=== PATIENT | female | born 1940 | race Caucasian/White ===

== ENCOUNTER → 2017-11-09 12:44 | Outpatient (CLI) | payer MEDICARE, SELFPAY ==
[2017-11-09 13:56] LABS: Alanine Aminotransferase 33 IU/L (9-52); Albumin 4.1 g/dL (3.5-5.0); Albumin Globulin Ratio 1.3 (1.0-2.8); Alkaline Phosphatase 56 U/L (38-126); Aspartate Aminotransferase 40 IU/L (14-36); BUN Creatinine Ratio 17.1 (6-22); Bilirubin Total 0.3 mg/dL (0.2-1.3); Blood Urea Nitrogen 12 mg/dL (7-17); Calcium 9.4 mg/dL (8.4-10.2); Carbon Dioxide 33 mmol/L (22-32); Chloride 99 mmol/L (98-107); Estimated Glomerular Filt Rate > 60.0 mL/min (>60); Globulin 3.1 g/dL (1.7-4.1); Glucose 70 mg/dL (80-110); HEMOLYSIS < 15 (0-50); Sodium 138 mmol/L (137-145); Total Protein 7.2 g/dL (6.3-8.2)
== END ==
PROVIDERS: Family Provider Physician Assistant; PCP Physician Assistant; Visit Provider Physician Assistant
DX: M81.0 Age-related osteoporosis without current pathological fracture (principal); E87.1 Hypo-osmolality and hyponatremia
CPT/HCPCS: 36415; 80053

== ENCOUNTER 2017-12-01 11:15 | Outpatient (RCR) | payer MEDICARE, SELFPAY ==
--- NOTE | 2017-10-06 15:30 | PT.OIE ---
Current Diagnoses Cystocele, unspecified (10/06/17) Other female genital prolapse (10/06/17) Provider Visit Care Team Role Provider Type Nette Almeida PA-C Family Provider Physician Primary Care Provider Specialty: Internal Medicine Address: [address] [place] [address], [id number] Email: Giselle Johnson MD Attending Provider Physician Specialty: PUBLIC INFORMATION OFFICER Address: [address] [place] [address], [id number] Email: [email or web address] Physical Therapy Initial Evaluation PT-OP-A Visit Information Start: 10/06/17 08:13 Freq: Status: Active Protocol: Document 10/06/17 09:05 LRN (Rec: 10/06/17 09:58 LRN [id number]) Out-Patient Physical Therapy Visit Information Visit Information Visit Type Initial Evaluation Visit Start Time 09:05 Visit Stop Time 10:05 Total Visit Minutes 60 Visit Number 1 Number of CLAM PICKER Visits 0 Evaluation Information Evaluation Date 10/06/17 PT-OP-B Current Condition Start: 10/06/17 08:13 Freq: Status: Active Protocol: Document 10/06/17 09:05 LRN (Rec: 10/06/17 09:58 LRN [id number]) Current Condition History of Current Condition Onset Date 08/2017 Current Complaints Feeling of a bulge in the Pelvic Floor (PF). History of Current Condition Pt reports one day she noticed being uncomfortable and unusual in the PF region, like a bulge was present. She denies having pain or leakage, but is bothered by a feeling of a bulge. She recalls no preceding incident to cause the feeling, but she states she did fall 3' from a ladder in May, landing on a concrete floor straight on both buttocks. She suffered a pelvic bone fracture at the time. She notes sometimes having a problem with constipation if she doesn't watch her diet. Prior Treatments and Tests None Treatment Goals Patient/Caregiver Goals Pt goal is to strengthen the PF to avoid use of Pessary or need for surgery. Prior Functional Status Baseline Function- ADL's Independent Baseline Function- Mobility Independent Current Functional Impairments (Reported) Functional Limitations- ADL's None. but feels uncomfortable with activity due to the bulging. Functional Limitations- Mobility/Gait None Personal Factors Other Personal Factors That May Effect Lives alone, daughters nearby. Therapy/Recovery Osteoporosis. Occasional back pain since fall. Used to walk 3-4 times a week 2 miles, none since onset of problem. Has been doing sitting PF ex's 2x/day. PT-OP-C Subjective Start: 10/06/17 08:13 Freq: Status: Active Protocol: Document 10/06/17 09:05 LRN (Rec: 10/06/17 09:58 LRN [id number]) OP-PT Subjective Patient Comments Patient Comments Thinks the ex's Dr. Johnson instructed her in have been helpful. Patient Questionnaires Pelvic Pain and Urgency/Frequency Patient Symptom Scale Pelvic Pain Score 1 PT-OP-I Pelvic Floor Start: 10/06/17 08:13 Freq: Status: Active Protocol: Document 10/06/17 09:05 LRN (Rec: 10/06/17 09:58 LRN [id number]) Pelvic Floor Assessment Urine Pelvic Floor Surgery No Pelvic Clock Pelvic Clock 3-6 Tightness Prolapse Cystocele Grade 3 Prolapse Comments Pt has a feeling of falling out. Contraction Ability Voluntary Contraction Moderate Manual Muscle Testing Left 2 Manual Muscle Testing Right 2 Manual Muscle Testing Anterior 4 Manual Muscle Testing Posterior 4 PT-OP-J Posture/Palpation/Skin Start: 10/06/17 08:13 Freq: Status: Active Protocol: Document 10/06/17 09:05 LRN (Rec: 10/06/17 09:58 LRN [id number]) Posture Evaluation Position Standing Evaluation View Anterior, Posterior, Lateral L-Spine Posture Increased Lordosis Shoulder Posture (L) Elevated Pelvis Posture (L) PSIS Posterior (L) PSIS Inferior Knee Posture (L) Genu Varus (R) Genu Varus Ankle/Foot Posture (L) Calcaneal Eversion (R) Calcaneal Eversion PT-OP-K Range of Motion Start: 10/06/17 08:13 Freq: Status: Active Protocol: Document 10/06/17 09:05 LRN (Rec: 10/06/17 09:58 LRN [id number]) Hip Goniometric Range of Motion Hip Measured in Degrees Right Passive Testing Position Supine Straight Leg Raise 70 Extension 5 Internal Rotation 35 External Rotation 53 Passive Hip ROM WFL No Left Passive Testing Position Supine Straight Leg Raise 60 Extension 5 Abduction 30 Internal Rotation 30 External Rotation 55 PT-OP-M Strength Start: 10/06/17 08:13 Freq: Status: Active Protocol: Document 10/06/17 09:05 LRN (Rec: 10/06/17 09:58 LRN [id number]) Hip Strength Hip Manual Muscle Testing Right Flexion (L2) 4 Good External Rotation 5 Normal Internal Rotation 5 Normal Left Flexion (L2) 4 Good External Rotation 5 Normal Internal Rotation 5 Normal PT-OP-Q Treatments Start: 10/06/17 08:13 Freq: Status: Active Protocol: Document 10/06/17 09:05 LRN (Rec: 10/06/17 17:55 LRN [id number]) Self-Care/Home Management Treatment Education Patient Education Home Exercise Program Activities Self-Care/Home Management Activities Issued and reviewed: Bladder Diary to be completed. Issued and reviewed: Kegel ex' s for quick flicks and long holds in supine with hips elevated, down dog position, or sit/stand. PT-OP-T Assessment and Plan Start: 10/06/17 08:13 Freq: Status: Active Protocol: Document 10/06/17 09:05 LRN (Rec: 10/06/17 09:58 LRN [id number]) Physical Therapy Assessment Rehab Potential Rehabilitation Potential Excellent Evaluation Complexity Number of Personal Factors/Comorbidities 0 Number of Body Systems Impaired 3 Clinical Presentation at Evaluation Stable Impairments Impairments Posture Soft Tissue Mobility Strength Other Concerns Barriers to Rehabilitation Age: 76 Lives alone. Goals Three Impairment Decreased PF quick contraction strength. Prison Goal (LTG) Pt will be able to perform 10 quick contractions prior to notable fatigue in order to prevent the need for use of pessary or surgery. LTG Duration 12/09/17 Two Impairment Decreased PF long hold of less than 10 sec's Hydrogen Power Plant Engineer Goal (LTG) Pt will be able to hold a PF contraction 10 sec's or greater prior to notable fatigue in order to avoid the use of a pessary. LTG Duration 12/09/17 One Impairment Lacks appropriate self care/ home exercise program (HEP). Prison Goal (LTG) Pt will be independent in self care/HEP. LTG Duration 12/09/17 Assessment Summary Assessment Pt presents with weakness of the pelvic floor in both quick flick and endurance muscle contractions. She has a visible cystocele without symptoms of urinary leakage, only discomfort. It is probable that the pelvic dysfunction from her fall in May has caused a muscle imbalance of her pelvic floor and hips; therefore leading to instability of her pelvis/ core/hips. The pt will benefit from skilled physical therapy to improve instability and strengthen her pelvic floor and will possibly be able to avoid surgery or use of a pessary. Physical Therapy Plan Frequency and Duration Frequency of Treatment 1x/Week Duration of Treatment 2 months Plan of Care Start Date 10/07/15 Plan of Care End Date 12/09/17 Therapeutic Interventions Therapeutic Interventions Home Exercise Program Joint Mobilizations Manual Therapy Neuromuscular Re-education Patient/Caregiver Education Self-Care/Home Management Soft Tissue Mobilization Therapeutic Activities Therapeutic Exercises Modalities Biofeedback Cold Pack/Ice Massage Next Visit Focus/Plan Next Note Type Treatment Note Next Visit Plan Review Bladder Diary, pt education anatomy and for recommendations to behavior modification as needed for fluid intake per bladder diary , SEMG assessment and PF strengthening ex's, HEP of hip stretches. Address proper transfers and core stabilization in 1-2 weeks. Progress per cystocele protocol.
--- NOTE | 2017-10-09 17:47 | PT.OPPOC ---
Addendum entered and electronically signed by Alayna Ford, PT 10/10/17 15:39: Actual Plan of Care Date is 10/06/17. Note complete 10/10/17. Original Note: Current Diagnoses Cystocele, unspecified (10/06/17) Other female genital prolapse (10/06/17) Provider Visit Care Team Role Provider Type Nette Almeida PA-C Family Provider Physician Primary Care Provider Specialty: Internal Medicine Address: [address] [place] [address], [id number] Email: Giselle Johnson MD Attending Provider Physician Specialty: BOILER/CHILLER OPERATOR Address: [address] [place] [address], [address] Email: [email or web address] Plan Of Care PT-OP-T Assessment and Plan Start: 10/06/17 08:13 Freq: Status: Active Protocol: Document 10/06/17 09:05 LRN (Rec: 10/06/17 09:58 LRN [id number]) Physical Therapy Assessment Rehab Potential Rehabilitation Potential Excellent Evaluation Complexity Number of Personal Factors/Comorbidities 0 Number of Body Systems Impaired 3 Clinical Presentation at Evaluation Stable Impairments Impairments Posture Soft Tissue Mobility Strength Other Concerns Barriers to Rehabilitation Age: 76 Lives alone. Goals Three Impairment Decreased PF quick contraction strength. Muck Boss Goal (LTG) Pt will be able to perform 10 quick contractions prior to notable fatigue in order to prevent the need for use of pessary or surgery. LTG Duration 12/09/17 Two Impairment Decreased PF long hold of less than 10 sec's Detention Goal (LTG) Pt will be able to hold a PF contraction 10 sec's or greater prior to notable fatigue in order to avoid the use of a pessary. LTG Duration 12/09/17 One Impairment Lacks appropriate self care/ home exercise program (HEP). Muck Boss Goal (LTG) Pt will be independent in self care/HEP. LTG Duration 12/09/17 Assessment Summary Assessment Pt presents with weakness of the pelvic floor in both quick flick and endurance muscle contractions. She has a visible cystocele without symptoms of urinary leakage, only discomfort. It is probable that the pelvic dysfunction from her fall in May has caused a muscle imbalance of her pelvic floor and hips; therefore leading to instability of her pelvis/ core/hips. The pt will benefit from skilled physical therapy to improve instability and strengthen her pelvic floor and will possibly be able to avoid surgery or use of a pessary. Physical Therapy Plan Frequency and Duration Frequency of Treatment 1x/Week Duration of Treatment 2 months Plan of Care Start Date 10/07/15 Plan of Care End Date 12/09/17 Therapeutic Interventions Therapeutic Interventions Home Exercise Program Joint Mobilizations Manual Therapy Neuromuscular Re-education Patient/Caregiver Education Self-Care/Home Management Soft Tissue Mobilization Therapeutic Activities Therapeutic Exercises Modalities Biofeedback Cold Pack/Ice Massage Next Visit Focus/Plan Next Note Type Treatment Note Next Visit Plan Review Bladder Diary, pt education anatomy and for recommendations to behavior modification as needed for fluid intake per bladder diary , SEMG assessment and PF strengthening ex's, HEP of hip stretches. Address proper transfers and core stabilization in 1-2 weeks. Progress per cystocele protocol. Plan of Care Dates Plan of Care Start Date 10/07/15 Plan of Care End Date 12/09/17 Please Sign and Return: I have reviewed this Plan of Care and certify that the skilled therapy services above are required to meet the patient?s needs. Physician Signature Date Printed Name and Credentials Clinical Instructor Signature Printed Name and Credentials
--- NOTE | 2017-10-13 15:55 | PT.OTN ---
Current Diagnoses Cystocele, unspecified (10/13/17) Other female genital prolapse (10/13/17) Physical Therapy Treatment Note PT-OP-A Visit Information Start: 10/06/17 08:13 Freq: Status: Active Protocol: Document 10/13/17 09:01 LRN (Rec: 10/13/17 09:08 LRN [id number]) Out-Patient Physical Therapy Visit Information Visit Information Visit Type Treatment Note Visit Note 05/21 Visit Start Time 09:01 Visit Stop Time 10:58 Total Visit Minutes 57 Visit Number 2 Number of MATERIALS INSPECTOR Visits 0 Evaluation Information Evaluation Date 10/06/17 PT-OP-B Current Condition Start: 10/06/17 08:13 Freq: Status: Active Protocol: Document 10/06/17 09:05 LRN (Rec: 10/06/17 09:58 LRN [id number]) Current Condition History of Current Condition Onset Date 08/2017 Current Complaints Feeling of a bulge in the Pelvic Floor (PF). History of Current Condition Pt reports one day she noticed being uncomfortable and unusual in the PF region, like a bulge was present. She denies having pain or leakage, but is bothered by a feeling of a bulge. She recalls no preceding incident to cause the feeling, but she states she did fall 3' from a ladder in May, landing on a concrete floor straight on both buttocks. She suffered a pelvic bone fracture at the time. She notes sometimes having a problem with constipation if she doesn't watch her diet. Prior Treatments and Tests None Treatment Goals Patient/Caregiver Goals Pt goal is to strengthen the PF to avoid use of Pessary or need for surgery. Prior Functional Status Baseline Function- ADL's Independent Baseline Function- Mobility Independent Current Functional Impairments (Reported) Functional Limitations- ADL's None. but feels uncomfortable with activity due to the bulging. Functional Limitations- Mobility/Gait None Personal Factors Other Personal Factors That May Effect Lives alone, daughters nearby. Therapy/Recovery Osteoporosis. Occasional back pain since fall. Used to walk 3-4 times a week 2 miles, none since onset of problem. Has been doing sitting PF ex's 2x/day. PT-OP-C Subjective Start: 10/06/17 08:13 Freq: Status: Active Protocol: Document 10/13/17 09:01 LRN (Rec: 10/13/17 09:08 LRN [id number]) OP-PT Subjective Patient Comments Patient Comments Did not do bladder diary. Haven't done ex's well because of holiday. PT-OP-I Pelvic Floor Start: 10/06/17 08:13 Freq: Status: Active Protocol: Document 10/13/17 09:01 LRN (Rec: 10/13/17 09:15 LRN [id number]) Pelvic Floor Assessment SEMG (uV) Baseline 7.7 Quick Contraction 19.2 10 Second Contraction 13.5 Relaxation Fair Holding Poor/Slow Stability of Hold Poor/Slow Comments Pelvic Floor Comments Quick Flicks: 3 reps before decrease in strength. Long Hold: 2 reps before decrease in strength hold. Rest is 4.29 microVolts. PT-OP-J Posture/Palpation/Skin Start: 10/06/17 08:13 Freq: Status: Active Protocol: Document 10/06/17 09:05 LRN (Rec: 10/06/17 09:58 LRN [id number]) Posture Evaluation Position Standing Evaluation View Anterior, Posterior, Lateral L-Spine Posture Increased Lordosis Shoulder Posture (L) Elevated Pelvis Posture (L) PSIS Posterior (L) PSIS Inferior Knee Posture (L) Genu Varus (R) Genu Varus Ankle/Foot Posture (L) Calcaneal Eversion (R) Calcaneal Eversion PT-OP-K Range of Motion Start: 10/06/17 08:13 Freq: Status: Active Protocol: Document 10/06/17 09:05 LRN (Rec: 10/06/17 09:58 LRN [id number]) Hip Goniometric Range of Motion Hip Measured in Degrees Right Passive Testing Position Supine Straight Leg Raise 70 Extension 5 Internal Rotation 35 External Rotation 53 Passive Hip ROM WFL No Left Passive Testing Position Supine Straight Leg Raise 60 Extension 5 Abduction 30 Internal Rotation 30 External Rotation 55 PT-OP-M Strength Start: 10/06/17 08:13 Freq: Status: Active Protocol: Document 10/06/17 09:05 LRN (Rec: 10/06/17 09:58 LRN [id number]) Hip Strength Hip Manual Muscle Testing Right Flexion (L2) 4 Good External Rotation 5 Normal Internal Rotation 5 Normal Left Flexion (L2) 4 Good External Rotation 5 Normal Internal Rotation 5 Normal PT-OP-Q Treatments Start: 10/06/17 08:13 Freq: Status: Active Protocol: Document 10/13/17 09:01 LRN (Rec: 10/13/17 09:08 LRN [id number]) Neuro Re-Education Treatment Movement Re-Education Movement Re-education Activities PF contraction in isolation of abdominal & gluteal muscles per EMG Biofeedback Other Activities 2 Details ON WEDGE: Long Holds: PF contraction: 10 sec hold/10 sec rest Reps/Duration 4' Comments Training 1 Details ON WEDGE: Quick Flicks: PF contraction: 2 sec hold/2 sec rest Reps/Duration 4' Comments Training. Self-Care/Home Management Treatment Education Patient Education Home Exercise Program Posture Other Education Pt educated in pelvic anatomy and consequences/effects of prolapse and impact of constipation on urinary system . Pt educated in HEP: Diaphragmatic Breathing LE Roll in/out (without breathing or ball/band) Activities Self-Care/Home Management Activities PF contraction PT-OP-T Assessment and Plan Start: 10/06/17 08:13 Freq: Status: Active Protocol: Document 10/13/17 09:01 LRN (Rec: 10/13/17 09:08 LR [id number]) Physical Therapy Assessment Impairments Impairments Posture Soft Tissue Mobility Strength Goals Three Impairment Decreased PF quick contraction strength. Irrigator Gravity Flow Goal (LTG) Pt will be able to perform 10 quick contractions prior to notable fatigue in order to prevent the need for use of pessary or surgery. LTG Duration 12/09/17 Two Impairment Decreased PF long hold of less than 10 sec's Irrigator Gravity Flow Goal (LTG) Pt will be able to hold a PF contraction 10 sec's or greater prior to notable fatigue in order to avoid the use of a pessary. LTG Duration 12/09/17 One Impairment Lacks appropriate self care/ home exercise program (HEP). Penitentiary Goal (LTG) Pt will be independent in self care/HEP. LTG Duration 12/09/17 Progress Towards Goals Progress Comments Progress is slow. Pt did not do Bladder diary and was not consistent with her Kegel ex's . She is hesitant with therapy; therefore takes more time with training/teaching. Assessment Summary Assessment Pt presents with weakness of the pelvic floor in both quick flick and endurance muscle contractions per EMG biofeedback with vaginal electrode. She has a visible cystocele without symptoms of urinary leakage, only discomfort. Probable pelvic dysfunction from her fall in May caused a muscle imbalance of her pelvic floor and hips. She also has a high resting tone that limits her ability to perform a PF contraction. Her hold strength of contraction is 2 sec's and Quick Flick strength is good for 3 reps. Further strengthening in and elevated hip position or downward dog position is needed. Physical Therapy Plan Frequency and Duration Frequency of Treatment 1x/Week Duration of Treatment 2 months Plan of Care Start Date 10/07/15 Plan of Care End Date 12/09/17 Therapeutic Interventions Therapeutic Interventions Home Exercise Program Joint Mobilizations Manual Therapy Neuromuscular Re-education Patient/Caregiver Education Self-Care/Home Management Soft Tissue Mobilization Therapeutic Activities Therapeutic Exercises Modalities Biofeedback Cold Pack/Ice Massage Next Visit Focus/Plan Next Note Type Treatment Note Next Visit Plan Review Bladder Diary and give recommendations to behavior modification as needed per bladder diary review; PF strengthening ex's. Add HEP of hip stretches. Address proper transfers and core stabilization in 1-2 weeks. Progress per cystocele protocol.
--- NOTE | 2017-10-20 13:56 | PT.OTN ---
Current Diagnoses Cystocele, unspecified (10/20/17) Other female genital prolapse (10/20/17) Physical Therapy Treatment Note PT-OP-A Visit Information Start: 10/06/17 08:13 Freq: Status: Active Protocol: Document 10/20/17 09:05 LRN (Rec: 10/20/17 09:51 LRN [id number]) Out-Patient Physical Therapy Visit Information Visit Information Visit Type Treatment Note Visit Note 06/18 Visit Start Time 09:05 Visit Stop Time 10:50 Total Visit Minutes 45 Visit Number 3 Number of SOCIAL STUDIES DEPARTMENT CHAIR Visits 0 Evaluation Information Evaluation Date 10/06/17 PT-OP-B Current Condition Start: 10/06/17 08:13 Freq: Status: Active Protocol: Document 10/06/17 09:05 LRN (Rec: 10/06/17 09:58 LRN [id number]) Current Condition History of Current Condition Onset Date 08/2017 Current Complaints Feeling of a bulge in the Pelvic Floor (PF). History of Current Condition Pt reports one day she noticed being uncomfortable and unusual in the PF region, like a bulge was present. She denies having pain or leakage, but is bothered by a feeling of a bulge. She recalls no preceding incident to cause the feeling, but she states she did fall 3' from a ladder in May, landing on a concrete floor straight on both buttocks. She suffered a pelvic bone fracture at the time. She notes sometimes having a problem with constipation if she doesn't watch her diet. Prior Treatments and Tests None Treatment Goals Patient/Caregiver Goals Pt goal is to strengthen the PF to avoid use of Pessary or need for surgery. Prior Functional Status Baseline Function- ADL's Independent Baseline Function- Mobility Independent Current Functional Impairments (Reported) Functional Limitations- ADL's None. but feels uncomfortable with activity due to the bulging. Functional Limitations- Mobility/Gait None Personal Factors Other Personal Factors That May Effect Lives alone, daughters nearby. Therapy/Recovery Osteoporosis. Occasional back pain since fall. Used to walk 3-4 times a week 2 miles, none since onset of problem. Has been doing sitting PF ex's 2x/day. PT-OP-C Subjective Start: 10/06/17 08:13 Freq: Status: Active Protocol: Document 10/20/17 09:05 LRN (Rec: 10/20/17 09:51 LRN [id number]) OP-PT Subjective Patient Comments Patient Comments Didn't ex as much as she should. Did do Bladder Diary. PT-OP-I Pelvic Floor Start: 10/06/17 08:13 Freq: Status: Active Protocol: Document 10/20/17 09:05 LRN (Rec: 10/20/17 13:44 LRN [id number]) Pelvic Floor Assessment Urine Urinary Symptoms Prolapse Other Urinary Symptoms No Leakage SEMG (uV) Baseline 3.5 Quick Contraction 17 10 Second Contraction 12 Relaxation Good PT-OP-J Posture/Palpation/Skin Start: 10/06/17 08:13 Freq: Status: Active Protocol: Document 10/06/17 09:05 LRN (Rec: 10/06/17 09:58 LRN [id number]) Posture Evaluation Position Standing Evaluation View Anterior, Posterior, Lateral L-Spine Posture Increased Lordosis Shoulder Posture (L) Elevated Pelvis Posture (L) PSIS Posterior (L) PSIS Inferior Knee Posture (L) Genu Varus (R) Genu Varus Ankle/Foot Posture (L) Calcaneal Eversion (R) Calcaneal Eversion PT-OP-K Range of Motion Start: 10/06/17 08:13 Freq: Status: Active Protocol: Document 10/06/17 09:05 LRN (Rec: 10/06/17 09:58 LRN [id number]) Hip Goniometric Range of Motion Hip Measured in Degrees Right Passive Testing Position Supine Straight Leg Raise 70 Extension 5 Internal Rotation 35 External Rotation 53 Passive Hip ROM WFL No Left Passive Testing Position Supine Straight Leg Raise 60 Extension 5 Abduction 30 Internal Rotation 30 External Rotation 55 PT-OP-M Strength Start: 10/06/17 08:13 Freq: Status: Active Protocol: Document 10/06/17 09:05 LRN (Rec: 10/06/17 09:58 LRN [id number]) Hip Strength Hip Manual Muscle Testing Right Flexion (L2) 4 Good External Rotation 5 Normal Internal Rotation 5 Normal Left Flexion (L2) 4 Good External Rotation 5 Normal Internal Rotation 5 Normal PT-OP-Q Treatments Start: 10/06/17 08:13 Freq: Status: Active Protocol: Document 10/20/17 09:05 LRN (Rec: 10/20/17 09:51 LRN [id number]) Therapeutic Exercises Supine Exercises 5 Supine Exercise Name With Bolster: Roll in/outs with Deep Breathing Reps/Minutes 4' Comments Extra time taken for training/ coordinatlin 4 Supine Exercise Name Piriformis stretch Side bilateral Reps/Minutes 3 3 Supine Exercise Name Hip ER Stretch Side bilateral Reps/Minutes 3 2 Supine Exercise Name Hip stretch: Hip flexor Side bilateral Resistance 3 1 Supine Exercise Name With Bolster: Deep Breathing Reps/Minutes 10' Neuro Re-Education Treatment Other Activities 2 Details ON WEDGE: Long Holds: PF contraction: 10 sec hold/10 sec rest Reps/Duration 4' Comments Training 1 Details ON WEDGE: Quick Flicks: PF contraction: 2 sec hold/2 sec rest Reps/Duration 4' Comments Training. Self-Care/Home Management Treatment Activities Self-Care/Home Management Activities Reviewed Bladder Diary and discussed self care. Primarily to increase non- caffenated drinks and monitor urination time PT-OP-T Assessment and Plan Start: 10/06/17 08:13 Freq: Status: Active Protocol: Document 10/20/17 09:05 LRN (Rec: 10/20/17 09:51 LRN [id number]) Physical Therapy Assessment Rehab Potential Rehabilitation Potential Excellent Evaluation Complexity Number of Personal Factors/Comorbidities 0 Number of Body Systems Impaired 3 Clinical Presentation at Evaluation Stable Impairments Impairments Posture Soft Tissue Mobility Strength Other Concerns Barriers to Rehabilitation Age: 76 Lives alone. Goals Three Impairment Decreased PF quick contraction strength. Chcf Goal (LTG) Pt will be able to perform 10 quick contractions prior to notable fatigue in order to prevent the need for use of pessary or surgery. LTG Duration 12/09/17 Two Impairment Decreased PF long hold of less than 10 sec's Risk And Insurance Manager Goal (LTG) Pt will be able to hold a PF contraction 10 sec's or greater prior to notable fatigue in order to avoid the use of a pessary. LTG Duration 12/09/17 One Impairment Lacks appropriate self care/ home exercise program (HEP). Chcf Goal (LTG) Pt will be independent in self care/HEP. LTG Duration 12/09/17 Progress Towards Goals Progress Comments Pt able to perform proper deep breathing, but is too quick. Assessment Summary Assessment Improved breathing technique and at end of training was able to properly perform Roll in/out ex 50% of time. Use of Ashely image for PF training was beneficial to pt feedback for strengthening. Physical Therapy Plan Frequency and Duration Frequency of Treatment 1x/Week Duration of Treatment 2 months Plan of Care Start Date 10/07/15 Plan of Care End Date 12/09/17 Therapeutic Interventions Therapeutic Interventions Home Exercise Program Joint Mobilizations Manual Therapy Neuromuscular Re-education Patient/Caregiver Education Self-Care/Home Management Soft Tissue Mobilization Therapeutic Activities Therapeutic Exercises Modalities Biofeedback Cold Pack/Ice Massage Next Visit Focus/Plan Next Note Type Treatment Note Next Visit Plan PF strengthening ex's. Review HEP of hip stretches. Address proper transfers and core stabilization in 1-2 weeks. Progress per cystocele protocol.
--- NOTE | 2017-10-27 14:56 | PT.OTN ---
Current Diagnoses Cystocele, unspecified (10/27/17) Other female genital prolapse (10/27/17) Physical Therapy Treatment Note PT-OP-A Visit Information Start: 10/06/17 08:13 Freq: Status: Active Protocol: Document 10/27/17 09:05 LRN (Rec: 10/27/17 09:44 LRN [id number]) Out-Patient Physical Therapy Visit Information Visit Information Visit Type Treatment Note Visit Note 07/19 Visit Start Time 09:05 Visit Stop Time 09:45 Total Visit Minutes 40 Visit Number 4 Number of MUSIC EDUCATION DIRECTOR Visits 0 Evaluation Information Evaluation Date 10/06/17 PT-OP-B Current Condition Start: 10/06/17 08:13 Freq: Status: Active Protocol: Document 10/06/17 09:05 LRN (Rec: 10/06/17 09:58 LRN [id number]) Current Condition History of Current Condition Onset Date 08/2017 Current Complaints Feeling of a bulge in the Pelvic Floor (PF). History of Current Condition Pt reports one day she noticed being uncomfortable and unusual in the PF region, like a bulge was present. She denies having pain or leakage, but is bothered by a feeling of a bulge. She recalls no preceding incident to cause the feeling, but she states she did fall 3' from a ladder in May, landing on a concrete floor straight on both buttocks. She suffered a pelvic bone fracture at the time. She notes sometimes having a problem with constipation if she doesn't watch her diet. Prior Treatments and Tests None Treatment Goals Patient/Caregiver Goals Pt goal is to strengthen the PF to avoid use of Pessary or need for surgery. Prior Functional Status Baseline Function- ADL's Independent Baseline Function- Mobility Independent Current Functional Impairments (Reported) Functional Limitations- ADL's None. but feels uncomfortable with activity due to the bulging. Functional Limitations- Mobility/Gait None Personal Factors Other Personal Factors That May Effect Lives alone, daughters nearby. Therapy/Recovery Osteoporosis. Occasional back pain since fall. Used to walk 3-4 times a week 2 miles, none since onset of problem. Has been doing sitting PF ex's 2x/day. PT-OP-C Subjective Start: 10/06/17 08:13 Freq: Status: Active Protocol: Document 10/27/17 09:05 LRN (Rec: 10/27/17 09:44 LRN [id number]) OP-PT Subjective Patient Comments Patient Comments Not a good week to keep up with ex's. PT-OP-I Pelvic Floor Start: 10/06/17 08:13 Freq: Status: Active Protocol: Document 10/20/17 09:05 LRN (Rec: 10/20/17 13:44 LRN [id number]) Pelvic Floor Assessment Urine Urinary Symptoms Prolapse Other Urinary Symptoms No Leakage SEMG (uV) Baseline 3.5 Quick Contraction 17 10 Second Contraction 12 Relaxation Good PT-OP-J Posture/Palpation/Skin Start: 10/06/17 08:13 Freq: Status: Active Protocol: Document 10/06/17 09:05 LRN (Rec: 10/06/17 09:58 LRN [id number]) Posture Evaluation Position Standing Evaluation View Anterior, Posterior, Lateral L-Spine Posture Increased Lordosis Shoulder Posture (L) Elevated Pelvis Posture (L) PSIS Posterior (L) PSIS Inferior Knee Posture (L) Genu Varus (R) Genu Varus Ankle/Foot Posture (L) Calcaneal Eversion (R) Calcaneal Eversion PT-OP-K Range of Motion Start: 10/06/17 08:13 Freq: Status: Active Protocol: Document 10/06/17 09:05 LRN (Rec: 10/06/17 09:58 LRN [id number]) Hip Goniometric Range of Motion Hip Measured in Degrees Right Passive Testing Position Supine Straight Leg Raise 70 Extension 5 Internal Rotation 35 External Rotation 53 Passive Hip ROM WFL No Left Passive Testing Position Supine Straight Leg Raise 60 Extension 5 Abduction 30 Internal Rotation 30 External Rotation 55 PT-OP-M Strength Start: 10/06/17 08:13 Freq: Status: Active Protocol: Document 10/06/17 09:05 LRN (Rec: 10/06/17 09:58 LRN [id number]) Hip Strength Hip Manual Muscle Testing Right Flexion (L2) 4 Good External Rotation 5 Normal Internal Rotation 5 Normal Left Flexion (L2) 4 Good External Rotation 5 Normal Internal Rotation 5 Normal PT-OP-Q Treatments Start: 10/06/17 08:13 Freq: Status: Active Protocol: Document 10/27/17 09:05 LRN (Rec: 10/27/17 09:44 LRN [id number]) Therapeutic Exercises Supine Exercises 5 Supine Exercise Name With Bolster: Roll in/outs with Deep Breathing Reps/Minutes 10' 4 Supine Exercise Name Piriformis stretch Side bilateral Reps/Minutes 1' 3 Supine Exercise Name Hip ER Stretch Side bilateral Reps/Minutes 1' 2 Supine Exercise Name Hip stretch: Hip flexor Side bilateral Resistance 1 Reps/Minutes 1' 1 Supine Exercise Name With Bolster: Deep Breathing Reps/Minutes 2' Neuro Re-Education Treatment Movement Re-Education Movement Re-education Activities PF contraction in isolation of abdominal & gluteal muscles per EMG Biofeedback Other Activities 2 Details ON WEDGE: Long Holds: PF contraction: 10 sec hold/10 sec rest Reps/Duration 10 Comments Training 1 Details ON WEDGE: Quick Flicks: PF contraction: 2 sec hold/2 sec rest Reps/Duration 5 Comments Training. Self-Care/Home Management Treatment Activities Self-Care/Home Management Activities Reviewed Bladder Diary and discussed self care. Less caffeine drinks, more non- bladder irritant fluids. PT-OP-T Assessment and Plan Start: 10/06/17 08:13 Freq: Status: Active Protocol: Document 10/27/17 09:05 LRN (Rec: 10/27/17 09:44 LRN [id number]) Physical Therapy Assessment Goals Three Impairment Decreased PF quick contraction strength. Stainless Steel Finisher Goal (LTG) Pt will be able to perform 10 quick contractions prior to notable fatigue in order to prevent the need for use of pessary or surgery. LTG Duration 12/09/17 Two Impairment Decreased PF long hold of less than 10 sec's Stainless Steel Finisher Goal (LTG) Pt will be able to hold a PF contraction 10 sec's or greater prior to notable fatigue in order to avoid the use of a pessary. LTG Duration 12/09/17 One Impairment Lacks appropriate self care/ home exercise program (HEP). Detention Goal (LTG) Pt will be independent in self care/HEP. LTG Duration 12/09/17 Assessment Summary Assessment Pt Bladder Diary shows increased urination times and increased freq in the AM with decreased fluids daily (1/2 of fluid drinking amount compared to her body weight), more water needed to decrease constipation and weakening of the PF. Pt demonstrates proper diaphragmatic breathing , but a little fast. Physical Therapy Plan Frequency and Duration Frequency of Treatment 1x/Week Duration of Treatment 2 months Plan of Care Start Date 06/28/16 Plan of Care End Date 12/09/17 Next Visit Focus/Plan Next Note Type Treatment Note Next Visit Plan PF strengthening ex's. Address proper transfers and core stabilization in 1-2 weeks. Progress per cystocele protocol.
--- NOTE | 2017-11-17 12:49 | PT.OTN ---
Current Diagnoses Cystocele, unspecified (11/17/17) Other female genital prolapse (11/17/17) Physical Therapy Treatment Note PT-OP-A Visit Information Start: 10/06/17 08:13 Freq: Status: Active Protocol: Document 11/17/17 11:30 LRN (Rec: 11/17/17 12:27 LRN [id number]) Out-Patient Physical Therapy Visit Information Visit Information Visit Type Treatment Note Visit Note 08/18 Visit Start Time 11:30 Visit Stop Time 12:15 Total Visit Minutes 45 Visit Number 5 Number of EDUCATION RESEARCH ANALYST Visits 0 Evaluation Information Evaluation Date 10/06/17 PT-OP-B Current Condition Start: 10/06/17 08:13 Freq: Status: Active Protocol: Document 10/06/17 09:05 LRN (Rec: 10/06/17 09:58 LRN [id number]) Current Condition History of Current Condition Onset Date 08/2017 Current Complaints Feeling of a bulge in the Pelvic Floor (PF). History of Current Condition Pt reports one day she noticed being uncomfortable and unusual in the PF region, like a bulge was present. She denies having pain or leakage, but is bothered by a feeling of a bulge. She recalls no preceding incident to cause the feeling, but she states she did fall 3' from a ladder in May, landing on a concrete floor straight on both buttocks. She suffered a pelvic bone fracture at the time. She notes sometimes having a problem with constipation if she doesn't watch her diet. Prior Treatments and Tests None Treatment Goals Patient/Caregiver Goals Pt goal is to strengthen the PF to avoid use of Pessary or need for surgery. Prior Functional Status Baseline Function- ADL's Independent Baseline Function- Mobility Independent Current Functional Impairments (Reported) Functional Limitations- ADL's None. but feels uncomfortable with activity due to the bulging. Functional Limitations- Mobility/Gait None Personal Factors Other Personal Factors That May Effect Lives alone, daughters nearby. Therapy/Recovery Osteoporosis. Occasional back pain since fall. Used to walk 3-4 times a week 2 miles, none since onset of problem. Has been doing sitting PF ex's 2x/day. PT-OP-C Subjective Start: 10/06/17 08:13 Freq: Status: Active Protocol: Document 11/17/17 11:30 LRN (Rec: 11/17/17 12:27 LRN [id number]) OP-PT Subjective Patient Comments Patient Comments Somedays is better, but other days not better. Tries to do some ex's 2x/day. PT-OP-I Pelvic Floor Start: 10/06/17 08:13 Freq: Status: Active Protocol: Document 10/20/17 09:05 LRN (Rec: 10/20/17 13:44 LRN [id number]) Pelvic Floor Assessment Urine Urinary Symptoms Prolapse Other Urinary Symptoms No Leakage SEMG (uV) Baseline 3.5 Quick Contraction 17 10 Second Contraction 12 Relaxation Good PT-OP-J Posture/Palpation/Skin Start: 10/06/17 08:13 Freq: Status: Active Protocol: Document 10/06/17 09:05 LRN (Rec: 10/06/17 09:58 LRN [id number]) Posture Evaluation Position Standing Evaluation View Anterior, Posterior, Lateral L-Spine Posture Increased Lordosis Shoulder Posture (L) Elevated Pelvis Posture (L) PSIS Posterior (L) PSIS Inferior Knee Posture (L) Genu Varus (R) Genu Varus Ankle/Foot Posture (L) Calcaneal Eversion (R) Calcaneal Eversion PT-OP-K Range of Motion Start: 10/06/17 08:13 Freq: Status: Active Protocol: Document 10/06/17 09:05 LRN (Rec: 10/06/17 09:58 LRN [id number]) Hip Goniometric Range of Motion Hip Measured in Degrees Right Passive Testing Position Supine Straight Leg Raise 70 Extension 5 Internal Rotation 35 External Rotation 53 Passive Hip ROM WFL No Left Passive Testing Position Supine Straight Leg Raise 60 Extension 5 Abduction 30 Internal Rotation 30 External Rotation 55 PT-OP-M Strength Start: 10/06/17 08:13 Freq: Status: Active Protocol: Document 10/06/17 09:05 LRN (Rec: 10/06/17 09:58 LRN [id number]) Hip Strength Hip Manual Muscle Testing Right Flexion (L2) 4 Good External Rotation 5 Normal Internal Rotation 5 Normal Left Flexion (L2) 4 Good External Rotation 5 Normal Internal Rotation 5 Normal PT-OP-Q Treatments Start: 10/06/17 08:13 Freq: Status: Active Protocol: Document 11/17/17 11:30 LRN (Rec: 11/17/17 12:27 LRN [id number]) Therapeutic Exercises Supine Exercises 5 Supine Exercise Name With Bolster: Roll in/outs with Deep Breathing Reps/Minutes 3' Neuro Re-Education Treatment Other Activities 4 Details Towel Squeeze & TBand hip AB with PF contraction 3 Details NMES PF Awareness training and strengthening Reps/Duration 25' Comments Slow training needed due to pt fear with E-Stim. 2 Details ON WEDGE: Long Holds: PF contraction: 10 sec hold/10 sec rest Reps/Duration 10x Comments Training 1 Details ON WEDGE: Quick Flicks: PF contraction: 2 sec hold/2 sec rest Reps/Duration 10x Comments Training. Self-Care/Home Management Treatment Education Patient Education Home Exercise Program Activities Self-Care/Home Management Activities I/S pt in HEP of Towel Roll Squeeze/PF contraction and T- Band BKFO/PF contraction, HIPS ON PILLOW. PT-OP-T Assessment and Plan Start: 10/06/17 08:13 Freq: Status: Active Protocol: Document 11/17/17 11:30 LRN (Rec: 11/17/17 12:27 LRN [id number]) Physical Therapy Assessment Impairments Impairments Posture Soft Tissue Mobility Strength Other Concerns Barriers to Rehabilitation Age: 76 Lives alone. Goals Three Impairment Decreased PF quick contraction strength. Ham Clerk Goal (LTG) Pt will be able to perform 10 quick contractions prior to notable fatigue in order to prevent the need for use of pessary or surgery. LTG Duration 12/09/17 Two Impairment Decreased PF long hold of less than 10 sec's Ham Clerk Goal (LTG) Pt will be able to hold a PF contraction 10 sec's or greater prior to notable fatigue in order to avoid the use of a pessary. LTG Duration 12/09/17 One Impairment Lacks appropriate self care/ home exercise program (HEP). Ham Clerk Goal (LTG) Pt will be independent in self care/HEP. LTG Duration 12/09/17 Progress Towards Goals Progress Comments Good coordination of LE Roll in/outs with Deep breathing. Assessment Summary Assessment Pt able to get awareness of a PF contraction with NMES intensity of 9 (50 freq), but pt had to back down intensity to 8. Pt required quite a bit of extra time to adjust to PF NMES. Physical Therapy Plan Frequency and Duration Frequency of Treatment 1x/Week Duration of Treatment 2 months Plan of Care Start Date 10/07/15 Plan of Care End Date 12/09/17 Next Visit Focus/Plan Next Note Type Treatment Note Next Visit Plan PF strengthening ex's. Address proper transfers and core stabilization. Progress per cystocele protocol.
--- NOTE | 2017-12-01 14:37 | PT.OTN ---
Current Diagnoses Cystocele, unspecified (12/01/17) Other female genital prolapse (12/01/17) Physical Therapy Treatment Note PT-OP-A Visit Information Start: 10/06/17 08:13 Freq: Status: Active Protocol: Document 12/01/17 11:15 LRN (Rec: 12/01/17 14:01 LRN [id number]) Out-Patient Physical Therapy Visit Information Visit Information Visit Type Treatment Note Visit Note 09/18 Visit Start Time 11:15 Visit Stop Time 12:10 Total Visit Minutes 55 Visit Number 6 Number of FINANCIAL SECRETARY Visits 0 Evaluation Information Evaluation Date 10/06/17 PT-OP-B Current Condition Start: 10/06/17 08:13 Freq: Status: Active Protocol: Document 10/06/17 09:05 LRN (Rec: 10/06/17 09:58 LRN [id number]) Current Condition History of Current Condition Onset Date 08/2017 Current Complaints Feeling of a bulge in the Pelvic Floor (PF). History of Current Condition Pt reports one day she noticed being uncomfortable and unusual in the PF region, like a bulge was present. She denies having pain or leakage, but is bothered by a feeling of a bulge. She recalls no preceding incident to cause the feeling, but she states she did fall 3' from a ladder in May, landing on a concrete floor straight on both buttocks. She suffered a pelvic bone fracture at the time. She notes sometimes having a problem with constipation if she doesn't watch her diet. Prior Treatments and Tests None Treatment Goals Patient/Caregiver Goals Pt goal is to strengthen the PF to avoid use of Pessary or need for surgery. Prior Functional Status Baseline Function- ADL's Independent Baseline Function- Mobility Independent Current Functional Impairments (Reported) Functional Limitations- ADL's None. but feels uncomfortable with activity due to the bulging. Functional Limitations- Mobility/Gait None Personal Factors Other Personal Factors That May Effect Lives alone, daughters nearby. Therapy/Recovery Osteoporosis. Occasional back pain since fall. Used to walk 3-4 times a week 2 miles, none since onset of problem. Has been doing sitting PF ex's 2x/day. PT-OP-C Subjective Start: 10/06/17 08:13 Freq: Status: Active Protocol: Document 12/01/17 11:15 LRN (Rec: 12/01/17 14:01 LRN [id number]) OP-PT Subjective Patient Comments Patient Comments Some days seems a little better, other times not. Patient Reported Progress Same PT-OP-I Pelvic Floor Start: 10/06/17 08:13 Freq: Status: Active Protocol: Document 12/01/17 11:15 LRN (Rec: 12/01/17 14:01 LRN [id number]) Pelvic Floor Assessment Urine Urinary Symptoms Prolapse Other Urinary Symptoms No Leakage Prolapse Uterine Prolapse Grade 4 Cystocele Grade 4 Prolapse Comments Checked in standing SEMG (uV) Baseline 1.1 Quick Contraction 13.7 10 Second Contraction 13.3 Relaxation Good Holding Poor/Slow Stability of Hold Poor/Slow PT-OP-J Posture/Palpation/Skin Start: 10/06/17 08:13 Freq: Status: Active Protocol: Document 10/06/17 09:05 LRN (Rec: 10/06/17 09:58 LRN [id number]) Posture Evaluation Position Standing Evaluation View Anterior, Posterior, Lateral L-Spine Posture Increased Lordosis Shoulder Posture (L) Elevated Pelvis Posture (L) PSIS Posterior (L) PSIS Inferior Knee Posture (L) Genu Varus (R) Genu Varus Ankle/Foot Posture (L) Calcaneal Eversion (R) Calcaneal Eversion PT-OP-K Range of Motion Start: 10/06/17 08:13 Freq: Status: Active Protocol: Document 10/06/17 09:05 LRN (Rec: 10/06/17 09:58 LRN [id number]) Hip Goniometric Range of Motion Hip Measured in Degrees Right Passive Testing Position Supine Straight Leg Raise 70 Extension 5 Internal Rotation 35 External Rotation 53 Passive Hip ROM WFL No Left Passive Testing Position Supine Straight Leg Raise 60 Extension 5 Abduction 30 Internal Rotation 30 External Rotation 55 PT-OP-M Strength Start: 10/06/17 08:13 Freq: Status: Active Protocol: Document 10/06/17 09:05 LRN (Rec: 10/06/17 09:58 LRN [id number]) Hip Strength Hip Manual Muscle Testing Right Flexion (L2) 4 Good External Rotation 5 Normal Internal Rotation 5 Normal Left Flexion (L2) 4 Good External Rotation 5 Normal Internal Rotation 5 Normal PT-OP-Q Treatments Start: 10/06/17 08:13 Freq: Status: Active Protocol: Document 12/01/17 11:15 LRN (Rec: 12/01/17 14:07 LRN [id number]) Therapeutic Exercises Supine Exercises 6 Supine Exercise Name BKFO with T-Band and towel roll Side bilateral Resistance L 1 T-Band and towel roll Reps/Minutes 10x each 5 Supine Exercise Name With Bolster: Roll in/outs with Deep Breathing Reps/Minutes 3' Sidelying Exercises 1 Sidelying Exercise Name Clamshell Side left Reps/Minutes 10x Neuro Re-Education Treatment Other Activities 2 Details ON WEDGE: Long Holds: PF contraction: 10 sec hold/10 sec rest Reps/Duration 10x 1 Details ON WEDGE: Quick Flicks: PF contraction: 2 sec hold/2 sec rest Reps/Duration 10x Self-Care/Home Management Treatment Education Patient Education Home Exercise Program Activities Self-Care/Home Management Activities Reviewed HEP. Educated pt to do PF strengthening in primarily supine with pillow under hips. Discussed PF training with sit to stands and uneven surfaces and in down dog yoga poses. Issued and reviewed HEP for Clamshell ex with PF contraction (1 with PF ><, 1 without; and 5 reps with PF >< , 5 reps without). PT-OP-T Assessment and Plan Start: 10/06/17 08:13 Freq: Status: Active Protocol: Document 12/01/17 11:15 LRN (Rec: 12/01/17 14:01 LRN [id number]) Physical Therapy Assessment Impairments Impairments Posture Soft Tissue Mobility Strength Other Concerns Barriers to Rehabilitation Age: 76 Lives alone. Goals Three Impairment Decreased PF quick contraction strength. Boat Builder And Repairer Goal (LTG) Pt will be able to perform 10 quick contractions prior to notable fatigue in order to prevent the need for use of pessary or surgery. LTG Duration 12/09/17 Two Impairment Decreased PF long hold of less than 10 sec's Boat Builder And Repairer Goal (LTG) Pt will be able to hold a PF contraction 10 sec's or greater prior to notable fatigue in order to avoid the use of a pessary. LTG Duration 12/09/17 One Impairment Lacks appropriate self care/ home exercise program (HEP). Boat Builder And Repairer Goal (LTG) Pt will be independent in self care/HEP. LTG Duration 12/09/17 Assessment Summary Assessment Pt's bladder position appears unchanged (checked in standing ). Her resting tone is lower and her ability to contract her PF has improved, but her strength of contraction for quick flicks is less and her endurance remains the same. The pt was unable to tolerate the use E-Stim for improving her PF awareness; therefore she is not yet sure what a PF contraction should really feel like. Since the pt has made no improvement in positioning of her bladder she is being referred back to your office for further recommendations. Physical Therapy Plan Discharge Physical Therapy Discharge Reasons Plateau in Progress Discharge Comments Pt is being referred back to your office for further recommendations. She is interested in use of a pessary .
== END 2018-03-13 12:32 ==
LOC: PHYS 11:15
PROVIDERS: Family Provider Physician Assistant; PCP Physician Assistant; Visit Provider Specialist
DX: N81.10 Cystocele, unspecified (principal); N81.89 Other female genital prolapse
CPT/HCPCS: 97110; 97112; 97161; 97535

== ENCOUNTER → 2017-12-01 14:09 | Outpatient (CLI) | payer MEDICARE, SELFPAY | PROVIDERS: Family Provider Physician Assistant; PCP Physician Assistant; Visit Provider Physician Assistant | DX: M81.0 Age-related osteoporosis without current pathological fracture (principal); Z78.0 Asymptomatic menopausal state | CPT/HCPCS: 77080 ==

== ENCOUNTER → 2018-08-02 16:15 | Outpatient (CLI) | payer MEDICARE, SELFPAY ==
--- NOTE | 2018-08-02 | DI.MG.S_ITS ---
BILATERAL DIGITAL SCREENING MAMMOGRAM 3D/2D WITH CAD: 08/02/2018 CLINICAL: Routine screening. Comparison is made to exams dated: 07/19/2016 mammogram, 07/10/2015 mammogram - [facility], and 07/08/2014 mammogram - [facility]. The tissue of both breasts is heterogeneously dense. This may lower the sensitivity of mammography. Current study was also evaluated with a Computer Aided Detection (CAD) system. No significant masses, calcifications, or other findings are seen in either breast. There has been no significant interval change. IMPRESSION: NEGATIVE There is no mammographic evidence of malignancy. A 1 year screening mammogram is recommended. This exam was interpreted at Station ID: [id number]. NOTE: For mammograms, a report in lay terms will be sent to the patient. Approximately 15% of breast malignancies will not be visualized mammographically. In the management of a palpable breast mass, a negative mammogram must not discourage biopsy of a clinically suspicious lesion. Electronically Signed By: Nick cason/jaron:08/03/2018 11:54:34 letter sent: Normal Exam ACR BI-RADS Category 1: Negative 3341F
== END ==
PROVIDERS: Family Provider Physician Assistant; PCP Physician Assistant; Visit Provider Internal Medicine
DX: Z12.31 Encounter for screening mammogram for malignant neoplasm of breast (principal)
CPT/HCPCS: 77063; 77067

== ENCOUNTER → 2018-08-22 11:05 | Outpatient (CLI) | payer MEDICARE, SELFPAY ==
[2018-08-22 13:28] LABS: Alanine Aminotransferase 23 IU/L (9-52); Albumin 4.1 g/dL (3.5-5.0); Albumin Globulin Ratio 1.3 (1.0-2.8); Alkaline Phosphatase 55 U/L (38-126); Aspartate Aminotransferase 32 IU/L (14-36); Bilirubin Total 0.4 mg/dL (0.2-1.3); Blood Urea Nitrogen 12 mg/dL (7-17); Calcium 9.3 mg/dL (8.4-10.2); Carbon Dioxide 29 mmol/L (22-32); Chloride 99 mmol/L (98-107); Cholesterol 201 mg/dL (140-199); Estimated Glomerular Filt Rate > 60.0 mL/min (>60); Globulin 3.1 g/dL (1.7-4.1); Glucose 76 mg/dL (80-110); HDL Cholesterol 50 mg/dL (40-60); HEMOLYSIS < 15 (0-50); LDL Cholesterol Calculated 131 mg/dL (<100); Sodium 138 mmol/L (137-145); Total Protein 7.2 g/dL (6.3-8.2); Triglycerides 99 mg/dL (35-150)
== END ==
PROVIDERS: Family Provider Physician Assistant; PCP Physician Assistant; Visit Provider Physician Assistant
DX: K58.9 Irritable bowel syndrome, unspecified (principal); M81.0 Age-related osteoporosis without current pathological fracture; E87.1 Hypo-osmolality and hyponatremia
CPT/HCPCS: 36415; 80053; 80061

== ENCOUNTER → 2018-12-19 13:04 | Outpatient (CLI) | payer MEDICARE, SELFPAY ==
[2018-12-19 13:49] LABS: Prothrombin Time 11.1 SECONDS (10.1-12.7)
[2018-12-19 13:52] LABS: PTT Partial Thromboplastin Tim 24 SECONDS (26.4-36.2)
[2018-12-19 15:05] LABS: Alanine Aminotransferase 21 IU/L (9-52); Albumin 4.7 g/dL (3.5-5.0); Albumin Globulin Ratio 1.5 (1.0-2.8); Alkaline Phosphatase 64 U/L (38-126); Aspartate Aminotransferase 35 IU/L (14-36); BUN Creatinine Ratio 18.6 (6-22); Bilirubin Total 0.6 mg/dL (0.2-1.3); Blood Urea Nitrogen 13 mg/dL (7-17); Calcium 9.7 mg/dL (8.4-10.2); Carbon Dioxide 28 mmol/L (22-32); Chloride 99 mmol/L (98-107); Estimated Glomerular Filt Rate > 60.0 mL/min (>60); Gamma Glutamyl Transpeptidase 23 U/L (12-43); Globulin 3.1 g/dL (1.7-4.1); Glucose 84 mg/dL (80-110); HEMOLYSIS < 15 (0-50); Potassium 4.2 mmol/L (3.4-5.1); Sodium 139 mmol/L (137-145); Total Protein 7.8 g/dL (6.3-8.2)
[2018-12-19 15:40] LABS: Hepatitis B Surface Antigen NEGATIVE s/c (NEGATIVE)
[2018-12-19 15:59] LABS: Hep C Virus Ab w/Reflex Quant NEGATIVE s/c (NEGATIVE)
[2018-12-21 14:58] LABS: Hepatitis B Core Antibody Nonreactive (Nonreactive)
[2018-12-22 08:08] LABS: Hepatitis B Surf Ab Qualitativ Nonreactive (Nonreactive)
== END ==
PROVIDERS: PCP Physician Assistant; Visit Provider Internal Medicine
DX: R74.0 Nonspecific elevation of levels of transaminase and lactic acid dehydrogenase [LDH] (principal)
CPT/HCPCS: 36415; 80053; 82977; 85610; 85730; 86704; 86706; 86803; 87340

== ENCOUNTER → 2019-12-13 14:58 | Outpatient (CLI) | payer MEDICARE, SELFPAY ==
--- NOTE | 2019-12-13 15:51 | DI.MG.S_ITS ---
Patient Name: CHRISTINA FONSECA date: 1940 Sex: F Attending Physician: Tai Indications: Date: 12/13/2019 15:48 At the request of: DYANA BRUNNER Procedure: MM screening mammo BI BILATERAL DIGITAL SCREENING MAMMOGRAM 3D/2D WITH CAD: 12/13/2019 CLINICAL: Routine screening. Comparison is made to exams dated: 08/02/2018 mammogram, 07/19/2016 mammogram, and 07/10/2015 mammogram - [facility]. The tissue of both breasts is heterogeneously dense. This may lower the sensitivity of mammography. Current study was also evaluated with a Computer Aided Detection (CAD) system. No significant masses, calcifications, or other findings are seen in either breast. There has been no significant interval change. IMPRESSION: NEGATIVE There is no mammographic evidence of malignancy. A 1 year screening mammogram is recommended. This exam was interpreted at Station ID: [id number]. NOTE: For mammograms, a report in lay terms will be sent to the patient. Approximately 15% of breast malignancies will not be visualized mammographically. In the management of a palpable breast mass, a negative mammogram must not discourage biopsy of a clinically suspicious lesion. Electronically Signed By: Charles garcia/jaron:12/13/2019 17:26:08 letter sent: Normal Exam ACR BI-RADS Category 1: Negative 3341F
== END ==
PROVIDERS: PCP Internal Medicine; Referring Provider Internal Medicine; Visit Provider Internal Medicine
DX: Z12.31 Encounter for screening mammogram for malignant neoplasm of breast (principal); M81.0 Age-related osteoporosis without current pathological fracture; Z78.0 Asymptomatic menopausal state
CPT/HCPCS: 77063; 77067; 77080

== ENCOUNTER → 2020-05-20 14:26 | Outpatient (ROUT) | payer MEDICARE, SELFPAY ==
[2020-05-20 14:38] LABS: Add Manual Diff / Slide Review NO; Basophils Absolute Auto 100 /uL (0-100); Basophils Percent Auto 1.3 % (0-2); Eosinophils Absolute Auto 100 /uL (0-450); Eosinophils Percent Auto 1.1 % (2-4); Hemoglobin 13.4 g/dL (12.0-16.0); Lymphocytes Absolute Auto 1600 /uL (1100-4500); Mean Corpuscular HGB Conc 31.8 % (30-36); Mean Corpuscular Hemoglobin 28.3 PG (26-34); Monocytes Absolute Auto 600 /uL (0-900); Monocytes Percent Auto 12.3 % (3-14); Neutrophils Absolute Auto 2800 /uL (1500-7000); Neutrophils Percent Auto 54.3 % (50-75); Platelet Count 361 X10^3/uL (150-400); Red Blood Cell Count 4.72 X10^6/uL (4.0-5.2); Red Cell Distribution Width 13.6 % (11.6-14.8); White Blood Cell Count 5.2 X10^3/uL (4.5-11.0)
[2020-05-20 14:46] LABS: Alanine Aminotransferase 19 IU/L (<35); Albumin 4.2 g/dL (3.5-5.0); Albumin Globulin Ratio 1.4 (1.0-2.8); Alkaline Phosphatase 61 U/L (38-126); Aspartate Aminotransferase 35 IU/L (14-36); BUN Creatinine Ratio 15.7 (6-22); Bilirubin Total 0.4 mg/dL (0.2-1.3); Blood Urea Nitrogen 11 mg/dL (7-17); Calcium 9.5 mg/dL (8.4-10.2); Carbon Dioxide 31 mmol/L (22-32); Chloride 99 mmol/L (98-107); Cholesterol 228 mg/dL (140-199); Estimated Glomerular Filt Rate > 60.0 mL/min (>60); Glucose 88 mg/dL (80-110); HDL Cholesterol 67 mg/dL (40-60); HEMOLYSIS < 15 (0-50); LDL Cholesterol Calculated 142 mg/dL (<100); Potassium 4.6 mmol/L (3.4-5.1); Sodium 133 mmol/L (137-145); Total Protein 7.2 g/dL (6.3-8.2); Triglycerides 93 mg/dL (35-150)
[2020-05-20 14:48] LABS: C-Reactive Protein Quant < 0.5 mg/dL (<1.0)
[2020-05-20 14:52] LABS: Erythrocyte Sedimentation Rate 5 MM/HR (0-20)
[2020-05-20 15:13] LABS: TSH w/ Reflex to FT4 1.09 uIU/mL (0.47-4.68)
== END ==
PROVIDERS: PCP Internal Medicine; Visit Provider Physician Assistant
DX: K58.9 Irritable bowel syndrome, unspecified (principal); M81.0 Age-related osteoporosis without current pathological fracture; R63.4 Abnormal weight loss; E78.2 Mixed hyperlipidemia
CPT/HCPCS: 80053; 80061; 84443; 85025; 85651; 86140

== ENCOUNTER → 2020-06-13 15:45 | Outpatient (CLI) | payer MEDICARE, SELFPAY ==
--- NOTE | 2020-06-13 15:53 | DI.RAD.S_ITS ---
PROCEDURE: XR ABDOMEN MIN 2V INDICATIONS: ABDOMINAL PAIN TECHNIQUE: 2 views of the abdomen were acquired. COMPARISON: None. FINDINGS: Surgical changes and devices: None. Bowel: No pneumoperitoneum. The bowel gas pattern is normal. Soft tissues: No masses; visualized solid organ contours appear normal in size. No suspicious abdominal calcifications. Bones: No suspicious bony abnormalities. IMPRESSION: Nonspecific bowel gas pattern, no free air seen. Dictated by: Arnav Mcnamara M.D. on 06/13/2020 at 16:35 Approved by: Arnav Mcnamara M.D. on 06/13/2020 at 16:37
== END ==
PROVIDERS: PCP Physician Assistant; Referring Provider Internal Medicine Gastroenterology; Visit Provider Internal Medicine Gastroenterology
DX: R10.9 Unspecified abdominal pain (principal)
CPT/HCPCS: 74019

== ENCOUNTER → 2020-06-19 14:21 | Outpatient (CLI) | payer MEDICARE, SELFPAY ==
[2020-06-19] MEDS: COVID-19 VACC, Ad26(JANSSEN)/PF 0.5 ML IM (14:40)
== END ==
PROVIDERS: PCP Physician Assistant; Visit Provider Internal Medicine
DX: Z23 Encounter for immunization (principal)
CPT/HCPCS: 0031A; 91303

== ENCOUNTER → 2021-02-20 10:26 | Outpatient (CLI) | payer MEDICARE, SELFPAY ==
[2021-02-20] MEDS: COVID-19 VACC #3, MRNA(MOD) 50 MCG/0.25 ML VIAL IM (10:33)
== END ==
PROVIDERS: PCP Physician Assistant; Visit Provider Internal Medicine
DX: Z23 Encounter for immunization (principal)
CPT/HCPCS: 0013A; 91301

== ENCOUNTER → 2021-06-12 10:35 | Outpatient (CLI) | payer MEDICARE, SELFPAY ==
[2021-06-12 11:50] LABS: Add Manual Diff / Slide Review NO; Basophils Absolute Auto 0 /uL (0-100); Basophils Percent Auto 0.6 % (0-2); Eosinophils Absolute Auto 0 /uL (0-450); Eosinophils Percent Auto 0.5 % (2-4); Hematocrit 40.3 % (36-46); Hemoglobin 13.3 g/dL (12.0-16.0); Lymphocytes Absolute Auto 1500 /uL (1100-4500); Lymphocytes Percent Auto 23.3 % (25-40); Mean Corpuscular HGB Conc 32.9 % (30-36); Mean Corpuscular Hemoglobin 28.9 PG (26-34); Mean Corpuscular Volume 87.8 fL (80-100); Monocytes Absolute Auto 600 /uL (0-900); Monocytes Percent Auto 8.6 % (3-14); Neutrophils Absolute Auto 4400 /uL (1500-7000); Platelet Count 322 X10^3/uL (150-400); Red Cell Distribution Width 13.7 % (11.6-14.8); White Blood Cell Count 6.5 X10^3/uL (4.5-11.0)
[2021-06-12 12:02] LABS: Alanine Aminotransferase 17 IU/L (<35); Albumin 4.6 g/dL (3.5-5.0); Albumin Globulin Ratio 1.4 (1.0-2.8); Alkaline Phosphatase 62 U/L (38-126); Aspartate Aminotransferase 31 IU/L (14-36); BUN Creatinine Ratio 8.8 (6-22); Bilirubin Total 0.9 mg/dL (0.2-1.3); Blood Urea Nitrogen 6 mg/dL (7-17); Calcium 9.3 mg/dL (8.4-10.2); Carbon Dioxide 27 mmol/L (22-32); Chloride 94 mmol/L (98-107); Estimated Glomerular Filt Rate > 60.0 mL/min (>60); Globulin 3.2 g/dL (1.7-4.1); Glucose 85 mg/dL (80-110); HEMOLYSIS < 15 (0-50); Sodium 129 mmol/L (137-145); Total Protein 7.8 g/dL (6.3-8.2)
[2021-06-12 12:06] LABS: Erythrocyte Sedimentation Rate 4 MM/HR (0-20)
== END ==
PROVIDERS: PCP Physician Assistant; Referring Provider Internal Medicine Gastroenterology; Visit Provider Internal Medicine Gastroenterology
DX: K57.30 Diverticulosis of large intestine without perforation or abscess without bleeding (principal)
CPT/HCPCS: 36415; 80053; 85025; 85651

== ENCOUNTER → 2022-01-21 15:01 | Outpatient (CLI) | payer MEDICARE, SELFPAY ==
--- NOTE | 2022-01-21 | DI.MG.S_ITS ---
BILATERAL DIGITAL SCREENING MAMMOGRAM 3D/2D WITH CAD: 01/21/2022 CLINICAL: Routine screening. Family history of breast cancer. Comparison is made to exams dated: 08/02/2018 mammogram, 07/19/2016 mammogram, and 07/10/2015 mammogram - [facility]. There are scattered areas of fibroglandular density in both breasts (category b / 25%-50% glandular tissue). Current study was also evaluated with a Computer Aided Detection (CAD) system. No significant masses, calcifications, or other findings are seen in either breast. There has been no significant interval change. IMPRESSION: NEGATIVE There is no mammographic evidence of malignancy. A 1 year screening mammogram is recommended. Based on the Tyrer Cuzick model (a risk assessment model) the patient's lifetime risk is 0.7% and her 10 year risk is 0.0%. According to the ACR, ACS, and NCCN guidelines, an annual breast MRI exam along with mammogram is recommended if the patient's lifetime risk is 20% or greater. This exam was interpreted at Station ID: [id number]. NOTE: For mammograms, a report in lay terms will be sent to the patient. Approximately 15% of breast malignancies will not be visualized mammographically. In the management of a palpable breast mass, a negative mammogram must not discourage biopsy of a clinically suspicious lesion. Electronically Signed By: Yaz jay/jaron:01/22/2022 10:36:42 letter sent: Normal Exam ACR BI-RADS Category 1: Negative 3341F
== END ==
PROVIDERS: PCP Physician Assistant; Referring Provider Physician Assistant; Visit Provider Physician Assistant
DX: Z12.31 Encounter for screening mammogram for malignant neoplasm of breast (principal); Z80.3 Family history of malignant neoplasm of breast
CPT/HCPCS: 77063; 77067

== ENCOUNTER → 2022-12-07 09:32 | Outpatient (CLI) | payer MEDICARE, SELFPAY ==
--- NOTE | 2022-12-07 09:33 | DI.RAD.S_ITS ---
Bone Density Report Name: CHRISTINA FONSECA Age: 82 Sex: Female Ethnicity: White Date of : 1940 Indication: postmenopausal osteoporosis; Referring Provider: PRERNA LUCIO Study: Bone densitometry was performed. Exam Date: December 07, 2022 Accession number: [id number] Bone Density: Region BMD T-score Z-score Classification AP Spine(L1, L2, L3) 0.808 -1.9 0.8 Osteopenia Femoral Neck (Left) 0.521 -3.0 -0.5 Osteoporosis Total Hip (Left) 0.600 -2.8 -0.5 Osteoporosis Femoral Neck (Right) 0.514 -3.0 -0.5 Osteoporosis Total Hip (Right) 0.637 -2.5 -0.2 Osteoporosis Total Hip Mean 0.619 -2.7 -0.4 Osteoporosis World Health Organization criteria for BMD impression classify patients as: Normal (T-score at or above -1.0), Osteopenia (T-score between -1.0 and -2.5), or Osteoporosis (T-score at or below -2.5). 10-year Fracture Risk: FRAX not reported because: Some T-score for Spine Total or Hip Total or Femoral Neck at or below -2.5 Previous Exams: -- Region Exam Age BMD T-score BMD Change BMD Change Date g/cm2 vs Baseline vs Previous -- AP Spine (L1-L3) 12/07/2022 82 0.808 -1.9 0.072 (9.8%)# 0.072 (9.8%)# 12/13/2019 79 0.735 -2.6 Total Hip(Left) 12/07/2022 82 0.600 -2.8 0.044 (7.9%)# 0.044 (7.9%)# 12/13/2019 79 0.557 -3.2 Total Hip(Right) 12/07/2022 82 0.637 -2.5 0.058 (10.0%)# 0.058 (10.0%)# 12/13/2019 79 0.580 -3.0 -- *Denotes significance at 95% confidence level, LSC for AP Spine = 0.022 g/cm2, LSC for Total Hip = 0.027 g/cm2 # Denotes dissimilar scan types or analysis methods Impression: The patient has osteoporosis, based on the Left Femoral Neck T-score. No significant bone loss was observed. Discussion: INCREASED RISK OF FRACTURE. BONE DENSITY IS UNDESIRABLY LOW AT ONE OR MORE SKELETAL SITES, CONSISTENT WITH POSTMENOPAUSAL OSTEOPOROSIS. This patient's lowest T-score meets the World Health Organization's (WHO) criteria for osteoporosis at one or more sites (T-score -2.5 or below). In untreated patients, the risk of osteoporotic fracture increases approximately two-fold for each 1.0 SD decrease in T-score. Low bone density is not the only risk factor for fracture; also consider factors such as patient's age, frailty or poor health, risk of falling, risk of injury, previous osteoporotic fracture, family history of osteoporosis, cigarette smoking, low body weight, etc. Not everyone with low bone mineral density has osteoporosis; osteomalacia and other metabolic bone disorders should also be considered. Patients who have osteoporosis should be evaluated for specific diseases and conditions (secondary causes) that may cause or contribute to bone loss. The [place] [employer] Endocrinologists (AACE) and National Osteoporosis Foundation (NOF) recommend pharmacologic intervention for all postmenopausal women whose T-score is in this range. The patient should follow a healthful lifestyle (good nutrition with adequate calcium and vitamin D, and appropriate weight-bearing exercise). Follow-Up: Consider a repeat BMD and Vertebral Fracture Assessment (VFA) exam in 2 years or sooner if medically necessary, to reassess this patient's status. Reported by: JAYLENE MEJIA M.D. on 12/07/2022 10:19:00 AM.
== END ==
PROVIDERS: PCP Nurse Practitioner; Referring Provider Nurse Practitioner; Visit Provider Nurse Practitioner
DX: M81.0 Age-related osteoporosis without current pathological fracture (principal)
CPT/HCPCS: 77080

== ENCOUNTER → 2023-05-17 12:05 | Outpatient (CLI) | payer MEDICARE, SELFPAY ==
[2023-05-17 13:27] LABS: Alanine Aminotransferase 21 IU/L (<35); Albumin 4.2 g/dL (3.5-5.0); Albumin Globulin Ratio 1.4 (1.0-2.8); Alkaline Phosphatase 64 U/L (38-126); Aspartate Aminotransferase 33 IU/L (14-36); BUN Creatinine Ratio 19.4 (6-22); Bilirubin Total 0.5 mg/dL (0.2-1.3); Blood Urea Nitrogen 13 mg/dL (7-17); Calcium 9.9 mg/dL (8.4-10.2); Carbon Dioxide 28 mmol/L (22-32); Chloride 101 mmol/L (98-107); Cholesterol 233 mg/dL (140-199); Estimated Glomerular Filt Rate > 60 mL/min (>60); Globulin 3.1 g/dL (1.7-4.1); Glucose 85 mg/dL (80-110); HDL Cholesterol 65 mg/dL (40-60); HEMOLYSIS < 15 (0-50); LDL Cholesterol Calculated 147 mg/dL (<100); Potassium 4.5 mmol/L (3.4-5.1); Sodium 136 mmol/L (137-145); Total Protein 7.3 g/dL (6.3-8.2); Triglycerides 104 mg/dL (35-150)
[2023-05-17 13:49] LABS: Free T4, Direct Thyroxine 0.93 ng/dL (0.78-2.19)
[2023-05-17 14:02] LABS: Thyroid Stimulating Hormone 2.18 uIU/mL (0.47-4.68)
== END ==
LOC: LAB 12:06
PROVIDERS: PCP Nurse Practitioner; Referring Provider Nurse Practitioner; Visit Provider Nurse Practitioner
DX: E87.1 Hypo-osmolality and hyponatremia (principal); Z79.899 Other long term (current) drug therapy; F41.8 Other specified anxiety disorders; M81.0 Age-related osteoporosis without current pathological fracture; K58.9 Irritable bowel syndrome, unspecified
CPT/HCPCS: 36415; 80053; 80061; 84439; 84443; 84481

== ENCOUNTER → 2023-12-13 10:21 | Outpatient (CLI) | payer MEDICARE, SELFPAY ==
--- NOTE | 2023-12-13 10:22 | DI.MG.S_ITS ---
BILATERAL DIGITAL SCREENING MAMMOGRAM 3D/2D WITH CAD: 12/13/2023 CLINICAL: Routine screening. Family history of breast cancer. Comparison is made to exams dated: 01/21/2022 mammogram, 12/13/2019 mammogram, and 08/02/2018 mammogram - [facility]. Both breasts are heterogeneously dense, which may obscure small masses (category c / 51-75% glandular tissue). Current study was also evaluated with a Computer Aided Detection (CAD) system. No significant masses, calcifications, or other findings are seen in either breast. There has been no significant interval change. IMPRESSION: NEGATIVE There is no mammographic evidence of malignancy. A 1 year screening mammogram is recommended. This exam was interpreted at Station ID: [id number]. NOTE: For mammograms, a report in lay terms will be sent to the patient. Approximately 15% of breast malignancies will not be visualized mammographically. In the management of a palpable breast mass, a negative mammogram must not discourage biopsy of a clinically suspicious lesion. Electronically Signed By: Sage marie/jaron:12/13/2023 12:51:43 letter sent: Normal Exam ACR BI-RADS Category 1: Negative 3341F
== END ==
PROVIDERS: PCP Registered Nurse Diabetes Educator; Referring Provider Registered Nurse Diabetes Educator; Visit Provider Registered Nurse Diabetes Educator
DX: Z12.31 Encounter for screening mammogram for malignant neoplasm of breast (principal); R92.333 Mammographic heterogeneous density, bilateral breasts; Z80.3 Family history of malignant neoplasm of breast
CPT/HCPCS: 77063; 77067

== ENCOUNTER → 2024-06-26 12:53 | Outpatient (CLI) | payer MEDICARE, SELFPAY ==
[2024-06-27 08:11] LABS: Rubeola Measles IgG > 300.0 AU/mL (Immune >16.4)
== END ==
PROVIDERS: PCP Registered Nurse Diabetes Educator; Referring Provider Registered Nurse Diabetes Educator; Visit Provider Registered Nurse Diabetes Educator
DX: Z00.00 Encounter for general adult medical examination without abnormal findings (principal)
CPT/HCPCS: 36415; 86765

== ENCOUNTER → 2024-12-18 09:58 | Outpatient (CLI) | payer MEDICARE, SELFPAY ==
[2024-12-18 11:21] LABS: Alanine Aminotransferase 18 IU/L (<35); Albumin 4.4 g/dL (3.5-5.0); Albumin Globulin Ratio 1.6 (1.0-2.8); Alkaline Phosphatase 63 U/L (38-126); Blood Urea Nitrogen 13 mg/dL (7-17); Calcium 9.3 mg/dL (8.4-10.2); Carbon Dioxide 25 mmol/L (22-32); Chloride 97 mmol/L (98-107); Cholesterol 219 mg/dL (140-199); Estimated Glomerular Filt Rate > 60 mL/min (>60); Globulin 2.7 g/dL (1.7-4.1); Glucose 88 mg/dL (70-99); HDL Cholesterol 68 mg/dL (40-60); HEMOLYSIS < 15 (0-50); Potassium 4.3 mmol/L (3.4-5.1); Sodium 133 mmol/L (137-145); Total Protein 7.1 g/dL (6.3-8.2); Triglycerides 123 mg/dL (35-150)
[2024-12-18 11:33] LABS: Vitamin D 25 Hydroxy (D3) 79.9 ng/mL (30.0-100.0)
--- NOTE | 2024-12-18 12:27 | DI.MG.S_ITS ---
MM screening mammo BI: 12/18/2024. BI-RADS: 1 CLINICAL: 84-year old female for bilateral screening mammogram. No Tyrer-Cuzick risk score calculation due to patient's age being over 85 years old. No personal or first-degree family history of breast cancer. PRIOR EXAMS 12/13/2023, 01/21/2022, 12/13/2019, 08/02/2018. MAMMOGRAPHY TECHNIQUE: 2D and 3D (tomosynthesis) digital mammographic views obtained, with additional images as needed for full coverage. Current study was also evaluated with a Computer Aided Detection (CAD) system. DENSITY C. The breasts are heterogeneously dense, which may obscure small masses. MAMMOGRAPHY FINDINGS Bilateral: No suspicious mass, asymmetry, microcalcification, or other abnormality seen. IMPRESSION: * No evidence of malignancy. RECOMMENDATIONS Bilateral * Annual screening mammography. OVERALL ASSESSMENT CATEGORY BI-RADS-1: Negative. The [employer] [place] [employer] recommends annual screening mammography beginning at age 40 for women with average risk of breast cancer. ELECTRONICALLY SIGNED: Sri Saxena M.D. on 12/18/2024 at 05:34:10 PM PT Interpreting Station ID: [id number]
--- NOTE | 2024-12-18 12:27 | DI.RAD.S_ITS ---
1 PROCEDURE: XR DEXA AXIAL SKELETON INDICATIONS: reeval COMPARISON: [facility], CR, XR DEXA AXIAL SKELETON, 12/07/2022, 10:04. [facility], CR, XR DEXA AXIAL SKELETON, 12/13/2019, 15:40. FINDINGS: Lumbar Spine: Bone mineral density 0.837 g/cm2, T score -1.9, no statistically significant change in bone mineral density. Left Femoral Neck: Bone mineral density 0.483 g/cm2, T score -3.3. Left Hip: Bone mineral density 0.594 g/cm2, T score -2.8, no statistical comparison can not be made due to differences technique/modality. Fracture Risk Calculation (when applicable): 10-year fracture risk of a major osteoporotic fracture 20 percent and of a hip fracture 8.7 percent. (T score greater or equal to -1.0 to: NORMAL) (T score from -1.1 to -2.4: OSTEOPENIA) (T score less than or equal to -2.5: OSTEOPOROSIS) IMPRESSION: Osteoporosis. Follow-up guidelines as follows: Osteoporosis: Consider a repeat DEXA and Vertebral Fracture Assessment (VFA) exam in 2 years or sooner if medically necessary, to reassess this patient's status. Osteopenia: Consider a repeat DEXA in 2-3 years to reassess this patient's status, or if there is a new clinical indication. Normal: Consider a repeat DEXA in 5 years or sooner, or if there is a new clinical indication. All treatment decisions require clinical judgment and consideration of individual patient factors, including patient preferences, comorbidities, previous drug use, risk factors not captured in the FRAX model (e.g., frailty, falls, vitamin D deficiency, increased bone turnover, interval significant decline in bone density ) and possible under- or over-estimation of fracture risk by FRAX. In addition, the NOF Guide recommends that FDA-approved medical therapies be considered in postmenopausal women and men age >= 50 years with a: * Hip or vertebral (clinical or morphometric) fracture * T-score of <=-2.5 at the spine or hip * Ten-year fracture probability by FRAX of >= 3% for hip fracture or >=20% for major osteoporotic fracture. Dictated by: Nilson Hui M.D. on 12/18/2024 at 13:36 Approved by: Nilson Hui M.D. on 12/18/2024 at 13:40
== END ==
PROVIDERS: PCP Registered Nurse Diabetes Educator; Referring Provider Registered Nurse Diabetes Educator; Visit Provider Registered Nurse Diabetes Educator
DX: Z12.31 Encounter for screening mammogram for malignant neoplasm of breast (principal); R92.333 Mammographic heterogeneous density, bilateral breasts; M81.0 Age-related osteoporosis without current pathological fracture; E78.5 Hyperlipidemia, unspecified; E87.1 Hypo-osmolality and hyponatremia
CPT/HCPCS: 36415; 77063; 77067; 77080; 80053; 80061; 82306